=== PATIENT | male | born 1940 | race Two or more races ===

== ENCOUNTER 2020-12-04 07:32 | Outpatient (CLI) | payer OTHER ==
[~2020-12-04 07:32] MED LIST: CARDURA1 MG; LIPITOR20 MG
== END 2020-12-04 07:39 | disposition home or self-care (01) ==
LOC: RAD 07:32 → RX STUDY 08:15
PROVIDERS: ATTEND Colon & Rectal Surgery
DX: I10 Essential (primary) hypertension (principal); R10.84 Generalized abdominal pain

== ENCOUNTER 2021-05-30 06:31 | Day surgery (SDC) | payer OTHER ==
[2021-05-31] MEDS ORDERED: FINASTERIDE5 MG (10:33)
[2021-05-31] MEDS ORDERED: TAMSULOSIN HCL0.4 MG (10:33)
[2021-05-31] MEDS ORDERED: AMLODIPINE BESYL5 MG (10:34)
== END 2021-05-30 11:20 | disposition home or self-care (01) ==
LOC: AMB-ENDOS 06:31
PROVIDERS: ATTEND Colon & Rectal Surgery
DX: D12.4 Benign neoplasm of descending colon (principal); K64.0 First degree hemorrhoids; Z20.822 Contact with and (suspected) exposure to COVID-19

== ENCOUNTER 2021-05-31 10:14 | Inpatient (IN) | payer OTHER ==
[~2021-05-31] VITALS: Ht 177.8 cm; Wt 98.4 kg
[2021-05-31] MEDS ORDERED: FINASTERIDE5 MG (10:33)
[2021-05-31] MEDS ORDERED: TAMSULOSIN HCL0.4 MG (10:33)
[2021-05-31] MEDS ORDERED: AMLODIPINE BESYL5 MG (10:34)
--- NOTE | 2021-05-31 10:36 | NUR ---
SE RECIBE PACIENTE EN AMBULANCIA, ALERTA Y ORIENTADO EN TIEMPO LUGAR Y PERSONA. REFIERE QUE LE REALIZARON OLIVIA COLONOSCOPIA EN EL DAVIDA DE [place], Y DESDE ENTONCES PRESENTA VOMITOS (APROXIMADAMENTE 5), DIARREAS CONTINUAS Y DOLOR ABDOMINAL. PACIENTE DE DR. KUMAR. SE ELAINE SIGNOS VITALES Y SE UBICA PACIENTE EN OBSERVACION.
--- NOTE | 2021-05-31 13:21 | NUR ---
SE ORIENTA A PACIENTE SOBRE TRATAMIENTO ORDENADO POR DRA. RUTH, EL MISMO VERBALIZA ENTENDER. SE COLECTAN MUESTRAS ORDENADAS, SE ADMINISTRA MEDICAMENTOS CORRESPONDIENTES, Y SE COLOCA VENOPUNCION PATENTE, KB DE ERITEMA Y EDEMA, SE CONECTA TERAPIA DE IVF'S. SE COLOCA TUBO NASOGASTRICO A SUCCION POR LOS PRIMEROS 10MIN Y LUEGO SE MANTIENE CERRADO PARA LA ADMINISTRACION DEL CONTRASTE PARA EL CT. PENDIENTE CT ABDOMINAL Y RESULTADOS DE LABORATORIOS. SE MANTIENE PTE EN OBSERVACION POR CAMBIOS EN CARBALLO CONDICION.
== END 2021-06-02 10:08 | disposition home or self-care (01) | DRG 390 ==
LOC: ER 10:14 → SURH 14:50
PROVIDERS: ADMIT Colon & Rectal Surgery; ATTEND Colon & Rectal Surgery
DX: K56.699 Other intestinal obstruction unspecified as to partial versus complete obstruction (principal); K57.30 Diverticulosis of large intestine without perforation or abscess without bleeding; Z20.822 Contact with and (suspected) exposure to COVID-19